=== PATIENT | male | born 1950 | race Hispanic/Latino ===

== ENCOUNTER → 2024-12-08 | Outpatient (REF) | payer MEDICARE ==
[~2024-12-08] MED LIST: BENTYL20 MG PO; HYDROCODON-ACE1 EACH PO; IBUPROFEN400 MG PO; NEXIUM40 MG PO; REGLAN10 MG PO
== END ==
LOC: RAD 09:57
PROVIDERS: ATTEND Internal Medicine
DX: R06.02 Shortness of breath (principal)
CPT/HCPCS: 71046

== ENCOUNTER → 2025-02-10 | Outpatient (REF) | payer MEDICARE | LOC: RAD 09:59 | PROVIDERS: ATTEND Internal Medicine | DX: M16.12 Unilateral primary osteoarthritis, left hip (principal) ==

== ENCOUNTER → 2025-02-17 | Outpatient (REF) | payer MEDICARE | LOC: US 12:12 | PROVIDERS: ATTEND Internal Medicine | DX: N50.89 Other specified disorders of the male genital organs (principal); N43.3 Hydrocele, unspecified | CPT/HCPCS: 76870; 93976 ==